=== PATIENT | male | born 1945 | race Caucasian/White ===

== ENCOUNTER → 2016-06-06 | Outpatient (CLI) | payer MEDICARE | LOC: GMAB 14:42 | PROVIDERS: ATTEND Family Medicine | DX: I10 Essential (primary) hypertension (principal); R53.82 Chronic fatigue, unspecified ==

== ENCOUNTER → 2018-08-14 | Outpatient (CLI) | payer MEDICARE ==
--- NOTE | 2018-08-15 09:25 | MRI ---
EXAM DESCRIPTION: Lumbar Spine w/o Contrast : Magnetic Resonance Imaging. CLINICAL HISTORY: LOW BACK PAIN COMPARISON: MRI scan lumbar spine 04/17/2012. TECHNIQUE: Multiplanar, multiple standard sequences, non contrast MRI, lumbar spine. FINDINGS: L5-S1: Normal signal in the disc. Tiny posterior bulge. Disc space preserved. Trace retrolisthesis 1 mm. Bilateral hypertrophic facet arthrosis and flavum ligament enlargement. AP canal diameter 10 mm. Disc bulge into the left foramen with moderate narrowing. Mild narrowing of the right foramen. Stable since prior study. L4-L5: Disc desiccation and disc space narrowing. Posterior broad-based disc bulge. Posterior bilateral hypertrophic facet arthrosis and enlarged flavum ligaments impressing on the thecal sac, left more than right. AP canal diameter 9 mm. Moderate left foraminal narrowing and mild right foraminal narrowing. Mild progression since the prior study. L3-L4: Disc desiccation with disc space preserved. Minimal anterior bulging. Posterior bulge with hyperintense T2 signal; annular fissure in the bulging segment. Advanced hypertrophic facet arthrosis bilaterally more severe on the left with enlarged flavum ligaments. AP canal diameter 6 mm or less, lateral from the midline. Mild narrowing of the left subarticular recess. Mild right foraminal narrowing mild to moderate left neural foraminal narrowing. This has progressed since the prior study. L2-L3: Disc desiccation and minimal disc space loss. Disc space loss more on the right with Modic type I endplate reactive changes and disc spur complex encroaching on the right foramen. Posterior broad-based disc bulge more to the left of midline. Hypertrophic facet arthrosis and enlarged flavum ligaments bilaterally. AP canal diameter 9 mm. Mild left foraminal narrowing. Progression since the prior study. L1-L2: Minimal disc desiccation with no significant bulging. Disc space preserved. Bilateral hypertrophy of the flavum ligaments with mild canal narrowing. Bilateral foramina are patent. Stable since the prior study. T12-L1: Normal signal in the disc and disc space preserved. Posterior elements unremarkable. Canal and foramina are patent. Conus terminates at T12. Stable since the prior study. L1-L3 levoscoliosis. Paravertebral soft tissues paraspinal muscle atrophy more on the left. This may be due to prior procedure.. Normal marrow signal in the remaining vertebral bodies and the posterior elements. Vertebral bodies are not compressed at any level. IMPRESSION: 1. Multifactorial borderline mild central canal stenosis at L5-S1. Disc bulge into the left foramen with narrowing. Stable since the prior study in 2011. 2. Multifactorial mild central canal stenosis at L4-5. Mild progression since the prior study. 3. L3-4 disc desiccation posterior bulge with annular fissure. Severe central canal stenosis is multifactorial. Mild to moderate left neural foraminal narrowing. Progression since the prior study. 4. Mild central canal stenosis at L2-3 is multifactorial. Moderate spondylosis encroaching on the right foramen. Electronically signed by: Daryn Rosas MD 08/15/2018 9:22 AM CDT
== END ==
LOC: MRI 11:26
PROVIDERS: ATTEND Family Medicine
DX: M48.07 Spinal stenosis, lumbosacral region (principal); M51.36 Other intervertebral disc degeneration, lumbar region; M47.896 Other spondylosis, lumbar region